=== PATIENT | male | born 1985 | race Caucasian/White ===

== ENCOUNTER 2022-07-11 19:05 | Emergency (ER) | payer MEDICAID ==
[~2022-07-11] VITALS: Ht 170.2 cm; Wt 68.2 kg
[~2022-07-11 19:05] MED LIST: AMOX-117 PO
[2022-07-11] MEDS ORDERED: ondansetron/PF 4mg/2ml inj IV ONE (19:15)
[2022-07-11] MEDS ORDERED: normal saline 1000ML IV soln IV ONE (19:15)
[2022-07-11] MEDS ORDERED: ipratropium/albuterol 3ml nebule NEB ONE (19:15)
[2022-07-11] MEDS ORDERED: acetaminophen 325mg tablet PO ONE (19:20)
[2022-07-11 19:39] LABS: BASOPHILS % (AUTO) 0.1 % (0-1); EOSINOPHILS # (AUTO) 0.1 X10'3 (0-0.9); EOSINOPHILS % (AUTO) 0.3 % (0-6); HEMATOCRIT 47.1 % (42.0-52.0); LYMPHOCYTES # (AUTO) 1.4 X10'3 (1.1-4.8); LYMPHOCYTES % (AUTO) 7.3 % (21-51); MEAN CORPUSCULAR HEMOGLOBIN 27.6 PG (27.0-31.0); MEAN CORPUSCULAR HGB CONC 34.1 g/dL (33.0-36.5); MEAN CORPUSCULAR VOLUME 80.9 FL (78-98); MEAN PLATELET VOLUME 7.1 FL (7.4-10.4); MONOCYTES # (AUTO) 2.1 X10'3 (0-0.9); MONOCYTES % (AUTO) 11.5 % (2-12); NEUTROPHILS # (AUTO) 14.9 X10'3 (1.8-7.7); NEUTROPHILS % (AUTO) 80.8 % (42-75); PLATELET COUNT 416 X10'3 (140-440); RED BLOOD COUNT 5.82 X10'6 (4.70-6.10); RED CELL DISTRIBUTION WIDTH 14.7 % (11.5-14.5); WHITE BLOOD COUNT 18.5 X10'3 (4.5-11.0)
[2022-07-11 19:50] LABS: ALANINE AMINOTRANSFERASE 19 U/L (12-78); ALBUMIN 4.1 G/DL (3.4-5.0); ALKALINE PHOSPHATASE 86 IU/L (46-116); ANION GAP 8 (8-16); ASPARTATE AMINO TRANSFERASE 10 U/L (10-37); BILIRUBIN,TOTAL 1.1 MG/DL (0.1-1.0); BLOOD UREA NITROGEN 23 MG/DL (7-18); BUN/CREATININE RATIO 26.4 (10.0-20.0); CALCIUM 9.3 MG/DL (8.5-10.1); CHLORIDE 99 MMOL/L (99-107); CREATININE 0.87 MG/DL (0.60-1.10); GLUCOSE 109 MG/DL (70-104); MAGNESIUM 2.3 MG/DL (1.5-2.4); SODIUM 137 MMOL/L (135-145); TOTAL PROTEIN 8.2 G/DL (6.4-8.2); eGFR > 90 ML/MIN
[2022-07-11] MEDS ORDERED: POTASSIUM BICARB 20meq eff tab 20 MEQ TABLET.EFF PO ONE (20:05)
[2022-07-11] MEDS ORDERED: ringers solution, lactated 1000ml IV soln IV ONE (20:05)
[2022-07-11] MEDS ORDERED: ciprofloxacin 250mg tablet PO STA (20:18)
[2022-07-11 20:33] LABS: CLARITY,URINE CLEAR (Clear); COLOR,URINE YELLOW (Yellow); GLUCOSE, URINE NEGATIVE (Neg); KETONES,URINE NEGATIVE (Neg); LEUKOCYTE ESTERASE ,URINE NEGATIVE (Neg); NITRITES, URINE NEGATIVE (Neg); OCCULT BLOOD,URINE NEGATIVE (Neg); PH,URINE 6.5 (4.8-8.0); PROTEIN,URINE NEGATIVE (Neg); UROBILINOGEN,URINE 0.2 E.U/dL (0.2-1.0)
[2022-07-11] MEDS ORDERED: ALBU2.5V13 NEB (20:38)
[2022-07-11] MEDS ORDERED: CIPR-259 PO (20:38)
[2022-07-11 20:47] LABS: UA COLLECTION TYPE VOIDED
[2022-07-11] MEDS ORDERED: PROC-8 PO (20:58)
[2022-07-11 21:00] LABS: PLATELET ESTIMATE NORMAL; TOTAL CELLS COUNTED 100
[2022-07-11] MEDS ORDERED: proCHLORperazine 10 MG/2 ml inj IV ONE (21:00)
[2022-07-11 21:01] LABS: TOXIC VACUOLATION 1+
[2022-07-11 21:21] VITALS: BP 136/94
== END 2022-07-11 21:23 | disposition home or self-care (01) ==
LOC: ER 19:07
DX: R50.9 Fever, unspecified (principal); Z20.822 Contact with and (suspected) exposure to COVID-19; J20.9 Acute bronchitis, unspecified; E87.6 Hypokalemia; R06.02 Shortness of breath; F17.200 Nicotine dependence, unspecified, uncomplicated
CPT/HCPCS: 36415; 71045; 80053; 81003; 83605; 83735; 84145; 85007; 85025; 87040; 87502; 87503; 87811; 93005; 94640; 96374; 99285; J2405; J7030; J7120

== ENCOUNTER 2022-12-17 11:54 | Emergency (ER) | payer MEDICAID ==
[~2022-12-17] VITALS: Ht 170.2 cm; Wt 75.0 kg
[~2022-12-17 11:54] MED LIST changes: +ALBU2.5V13 NEB; +PROC-8 PO
[2022-12-17 12:05] VITALS: PULSE 78; TEMP 98.9
[2022-12-17] MEDS ORDERED: normal saline 1000ML IV soln IVB ONE (12:05)
[2022-12-17] MEDS ORDERED: ondansetron/PF 4mg/2ml inj IV ONE (12:05)
[2022-12-17] MEDS ORDERED: glycopyrrolate 0.2mg/ml inj IV ONE (12:05)
[2022-12-17] MEDS ORDERED: buprenorphine/naloxone 8MG-2MG SUBlingual film SL STA (12:16)
[2022-12-17 13:12] LABS: BASOPHILS % (AUTO) 0 % (0-1); EOSINOPHILS % (AUTO) 0 % (0-6); HEMATOCRIT 41.9 % (42.0-52.0); LYMPHOCYTES # (AUTO) 0.6 X10'3 (1.1-4.8); LYMPHOCYTES % (AUTO) 6.6 % (21-51); MEAN CORPUSCULAR HEMOGLOBIN 26.7 PG (27.0-31.0); MEAN CORPUSCULAR HGB CONC 33.4 g/dL (33.0-36.5); MEAN CORPUSCULAR VOLUME 80.1 FL (78-98); MEAN PLATELET VOLUME 7.6 FL (7.4-10.4); MONOCYTES # (AUTO) 0.5 X10'3 (0-0.9); MONOCYTES % (AUTO) 4.9 % (2-12); NEUTROPHILS # (AUTO) 8.7 X10'3 (1.8-7.7); NEUTROPHILS % (AUTO) 88.5 % (42-75); PLATELET COUNT 298 X10'3 (140-440); RED BLOOD COUNT 5.23 X10'6 (4.70-6.10); RED CELL DISTRIBUTION WIDTH 15.5 % (11.5-14.5); WHITE BLOOD COUNT 9.8 X10'3 (4.5-11.0)
--- NOTE | 2022-12-17 13:25 | NUR ---
Met with patient for substance use and to see if patient was interested in resources for treatment options. Patient is interested in starting Suboxone. I spoke with Dr Connolly and he will give a weeks supply. I gave patient a card for [facility] to continue Suboxone and my card to call me with any questions.
[2022-12-17 13:27] LABS: ALANINE AMINOTRANSFERASE 41 U/L (12-78); ALBUMIN 3.6 G/DL (3.4-5.0); ALBUMIN/GLOBULIN RATIO 1.1 (1.1-1.5); ALKALINE PHOSPHATASE 62 IU/L (46-116); ANION GAP 11 (8-16); ASPARTATE AMINO TRANSFERASE 20 U/L (10-37); BILIRUBIN,TOTAL 1.3 MG/DL (0.1-1.0); BLOOD UREA NITROGEN 22 MG/DL (7-18); BUN/CREATININE RATIO 32.8 (10.0-20.0); CALCIUM 9.1 MG/DL (8.5-10.1); CHLORIDE 101 MMOL/L (99-107); CREATININE 0.67 MG/DL (0.60-1.10); GLUCOSE 123 MG/DL (70-104); POTASSIUM 3.4 MMOL/L (3.5-5.1); SODIUM 138 MMOL/L (135-145); TOTAL CARBON DIOXIDE 25.8 MMOL/L (24-32); eCRCL 141 ML/MIN; eGFR > 90 ML/MIN
[2022-12-17] MEDS ORDERED: BUPR1FIL3 SL (13:31)
--- NOTE | 2022-12-17 13:46 | NUR ---
JUDSON'D PT FOR ISADORA VARGAS RN WHO WAS PRIMARY FOR THIS PT.
[2022-12-17 13:48] VITALS: BP 136/91; RESP 18; O2SAT 98
== END 2022-12-17 13:51 | disposition home or self-care (01) ==
LOC: ER 11:55
DX: F11.23 Opioid dependence with withdrawal (principal); Z79.899 Other long term (current) drug therapy
CPT/HCPCS: 36415; 80053; 85025; 96361; 96374; 96375; 99284; J2405; J3490; J7030